=== PATIENT | female | born 1990 | race American Indian/Alaskan Native ===

== ENCOUNTER 2017-03-27 10:52 | Emergency (ER) | payer BC, OTHER ==
[2017-03-27 11:19] VITALS: BP 106/62; PULSE 80; RESP 18; TEMP 98.1; O2SAT 100; BMI 37.2
--- NOTE | 2017-03-27 11:30 | ED PDOC ---
Arrival/HPI - General Time Seen by Provider: 03/27/17 11:28 Historian: Patient - History of Present Illness Narrative History of Present Illness (Text): 03/27/17 11:29 This 26 yo female who denies pmh presents to this ED c/o right sided cp x 2 weeks. Patient stated cp is worsen with movement. 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 Patient denies recent travel, sick contact, blood disorder , hemoptysis, abdominal pain, calf pain, leg swelling, sob, skin rash, recent travel, recent surgery, recent trauma, dizziness, or abnormal gait. PERC negative for PE Time/Duration: Other (2 weeks) Quality: Aching Context: Home Past Medical History - Provider Review Nursing Documentation Reviewed: Yes Family/Social History - Physician Review Nursing Documentation Reviewed: Yes Family/Social History: Other (noncontributory) Allergies/Home Meds Allergies/Adverse Reactions: Allergies No Known Allergies Allergy (Verified 03/27/17 11:36) Review of Systems - Review of Systems Constitutional: Normal. absent: Fatigue, Weight Change, Fevers Eyes: Normal ENT: Normal Respiratory: Normal. absent: SOB, Cough, Sputum, Wheezing Cardiovascular: Chest Pain Gastrointestinal: Normal. absent: Abdominal Pain, Nausea, Vomiting Genitourinary Female: Normal Musculoskeletal: Normal Skin: Normal. absent: Rash Neurological: Normal. absent: Dizziness, Focal Weakness, Speech Changes, Disequilibrium Endocrine: Normal Hemo/Lymphatic: Normal Psychiatric: Normal Physical Exam Vital Signs Temp Pulse Resp BP Pulse Ox 03/27/17 11:15 98.1 F 80 18 106/62 100 Temperature: Afebrile Blood Pressure: Normal Pulse: Regular Respiratory Rate: Normal Appearance: Positive for: Well-Appearing, Non-Toxic, Comfortable Pain Distress: None Mental Status: Positive for: Alert and Oriented X 3 - Systems Exam Head: Present: Atraumatic, Normocephalic Pupils: Present: PERRL Extroacular Muscles: Present: EOMI Conjunctiva: Present: Normal Mouth: Present: Moist Mucous Membranes Neck: Present: Normal Range of Motion Respiratory/Chest: Present: Clear to Auscultation, Good Air Exchange, Tender to Palpation (Mild tenderness on right costochondral area. no skin rash or lesion. 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 No: Respiratory Distress, Accessory Muscle Use Cardiovascular: Present: Regular Rate and Rhythm, Normal S1, S2. No: Murmurs Abdomen: Present: Normal Bowel Sounds. No: Tenderness, Distention, Peritoneal Signs, Rebound, Guarding Back: Present: Normal Inspection. No: CVA Tenderness Upper Extremity: Present: Normal Inspection. No: Cyanosis, Edema Lower Extremity: Present: Normal Inspection. No: Edema Neurological: Present: GCS=15, CN II-XII Intact, Speech Normal Skin: Present: Warm, Dry, Normal Color. No: Rashes Psychiatric: Present: Alert, Oriented x 3, Normal Insight, Normal Concentration Medical Decision Making - RAD Interpretation Narrative RAD Interpretations (Text): 03/27/17 12:06 Chest x-rays: NAD Radiology Orders: 03/27/17 11:36 CHEST PORTABLE [RAD] Stat - EKG Interpretation Interpreted by ED Physician: Yes (NSR @ [address] changes) Type: 12 lead EKG Comparison: No previous EKG avail. - Medication Orders Current Medication Orders: Discontinued Medications Ketorolac Tromethamine (Toradol) 30 mg IM STAT STA Stop: 03/27/17 11:38 Last Admin: 03/27/17 11:57 Dose: 30 mg MAR Pain Assessment Document 03/27/17 11:57 UT (Rec: 03/27/17 11:57 UT [id number]) Pain Reassessment Is this a pain reassessment? No Sleep Is patient sleeping during reassessment? No Presence of Pain Presence of Pain Yes Pain Scale Used Pain Scale Used Numeric Location Pain Location Body Site Chest Description Description Intermittent IM Administration Charges Document 03/27/17 11:57 HI (Rec: 03/27/17 11:57 [id number] Injection Site MAR Injection Site Left Gluteus Yong Charges for Administration # of IM Administrations 1 Disposition/Present on Arrival - Present on Arrival Any Indicators Present on Arrival: No History of DVT/PE: No History of Uncontrolled Diabetes: No Urinary Catheter: No History of Decub. Ulcer: No - Disposition Have Diagnosis and Disposition been Completed?: Yes Diagnosis: Non-cardiac chest pain, Acute costochondritis Disposition: HOME/ ROUTINE Disposition Time: 12:07 Patient Plan: Discharge Condition: GOOD Discharge Instructions (ExitCare): Costochondritis (ED) Additional Instructions: Call private doctor for follow up visit in 1-2 days. Take medication as instructed with food. 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 Return to emergency if symptoms worsen. Prescriptions: Famotidine [Pepcid] 40 mg PO DAILY #10 tablet Naproxen 500 mg PO BID PRN #14 tab PRN Reason: Pain, Severe (8-10) Forms: WORK NOTE
--- NOTE | 2017-03-27 12:03 | RAD ---
HISTORY: right sided CP COMPARISON: None available. TECHNIQUE: Chest, one view. FINDINGS: Examination limited by habitus LUNGS: No focal consolidation. Please note that chest x-ray has limited sensitivity for the detection of pulmonary masses. PLEURA: No significant pleural effusion identified. No definite pneumothorax . CARDIOVASCULAR: Heart size appears within normal limits. OSSEOUS STRUCTURES: No acute osseous abnormality identified. VISUALIZED UPPER ABDOMEN: Unremarkable. OTHER FINDINGS: None. IMPRESSION: No focal consolidation, significant pleural effusion, or definite pneumothorax identified.
--- NOTE | 2017-03-27 17:56 | CARD ---
APPROVED REPORT EKG Measurement Heart [id number] PA [id number] <Conclusion> Normal sinus rhythm Normal ECG
== END 2017-03-27 12:41 | disposition home or self-care (01) ==
LOC: ED 10:52
DX: R07.89 Other chest pain (principal)
CPT/HCPCS: 71045; 93005; 96372; 99283; J1885

== ENCOUNTER 2017-08-05 11:28 | Emergency (ER) | payer OTHER ==
[2017-08-05 11:29] VITALS: BMI 37.2
[2017-08-05 11:39] VITALS: TEMP 98.9
[2017-08-05 11:46] VITALS: RESP 18; O2SAT 98
--- NOTE | 2017-08-05 11:56 | ED PDOC ---
Arrival/HPI - General Chief Complaint: Lower Extremity Problem/Injury Time Seen by Provider: 08/05/17 11:40 Historian: Patient - History of Present Illness Narrative History of Present Illness (Text): 08/05/17 11:49 A 27 year old female, with no significant past medical history, presents to the emergency department complaining of pain to left knee, left wrist, and right shoulder for 1 week. Patient reports not having seen doctor, nor has she taken any medications. Patient denies any fall or trauma. Denies any recent travel. PMD: Dr. Nichole Steve Past Medical History - Provider Review Nursing Documentation Reviewed: Yes - Psychiatric Hx Psychophysiologic Disorder: No Hx Substance Use: No Family/Social History - Physician Review Nursing Documentation Reviewed: Yes Family/Social History: No Known Family HX Smoking Status: Never Smoked Hx Alcohol Use: No Hx Substance Use: No Allergies/Home Meds Allergies/Adverse Reactions: Allergies No Known Allergies Allergy (Verified 08/05/17 11:33) Review of Systems - Physician Review All systems were reviewed & negative as marked: Yes - Review of Systems Constitutional: absent: Other (no fall/trauma) Musculoskeletal: Other (pain to left knee, left wrist, and right shoulder) Physical Exam Vital Signs Reviewed: Yes Vital Signs Temp Pulse Resp BP Pulse Ox 08/05/17 13:34 98.9 F 65 18 121/70 98 08/05/17 13:00 65 18 121/70 98 08/05/17 11:43 98.9 F 67 18 124/76 98 08/05/17 11:35 98.9 F 67 16 124/76 96 Temperature: Afebrile Blood Pressure: Normal Pulse: Regular Respiratory Rate: Normal Appearance: Positive for: Well-Appearing Pain Distress: None Mental Status: Positive for: Alert and Oriented X 3 - Systems Exam Head: Present: Atraumatic, Normocephalic Pupils: Present: PERRL Extroacular Muscles: Present: EOMI Conjunctiva: Present: Normal Mouth: Present: Moist Mucous Membranes Neck: Present: Normal Range of Motion Respiratory/Chest: Present: Clear to Auscultation, Good Air Exchange. No: Respiratory Distress, Accessory Muscle Use Cardiovascular: Present: Regular Rate and Rhythm, Normal S1, S2. No: Murmurs Abdomen: No: Tenderness, Distention, Peritoneal Signs Back: Present: Normal Inspection Upper Extremity: Present: Tenderness (mild tenderness to right shoulder and left wrist). No: Cyanosis, Edema Lower Extremity: Present: Tenderness (mild tenderness to left knee). No: Edema Neurological: Present: GCS=15, CN II-XII Intact, Speech Normal Skin: Present: Warm, Dry, Normal Color. No: Rashes Psychiatric: Present: Alert, Oriented x 3, Normal Insight, Normal Concentration Medical Decision Making ED Course and Treatment: 08/05/17 11:49 Impression: 27 year old female with pain to left wrist, left knee, and right shoulder. Physical exam shows tenderness to areas noted for pain. Plan: -- Tylenol -- POC Urine Test -- Left Knee X-Ray -- Left Wrist X-Ray -- Right Shoulder X-Ray -- Reassess and disposition Progress Notes: 08/05/2017 13:01 Right Shoulder X-Ray IMPRESSION: Acute fracture or dislocation. Dictator: Brooke Hurt MD 08/05/2017 13:02 Left Knee X-Ray IMPRESSION: No acute fracture or dislocation. Small suprapatellar joint effusion. Dictator: Brooke Hurt MD 08/05/2017 13:02 Left Wrist X-Ray IMPRESSION: No acute fracture or dislocation. Dictator: Brooke Hurt MD 08/05/17 20:11 xr neg. pt advised outpt fu for eval for rheumatolgic lyme outpt. agrees to see pmd - RAD Interpretation Radiology Orders: 08/05/17 11:48 KNEE LEFT 2 VIEWS (AP & LAT) [RAD] Stat SHOULDER RIGHT [RAD] Stat WRIST, LEFT 3 VIEWS [RAD] Stat - Medication Orders Current Medication Orders: Discontinued Medications Acetaminophen (Tylenol 325mg Tab) 975 mg PO STAT STA Stop: 08/05/17 11:50 Last Admin: 08/05/17 12:06 Dose: 975 mg - Scribe Statement The provider has reviewed the documentation as recorded by the Graham Muñoz Provider Scribe Attestation: All medical record entries made by the Scribe were at my direction and personally dictated by me. I have reviewed the chart and agree that the record accurately reflects my personal performance of the history, physical exam, medical decision making, and the department course for this patient. I have also personally directed, reviewed, and agree with the discharge instructions and disposition. Disposition/Present on Arrival - Present on Arrival Any Indicators Present on Arrival: No History of DVT/PE: No History of Uncontrolled Diabetes: No Urinary Catheter: No History of Decub. Ulcer: No History Surgical Site Infection Following: None - Disposition Have Diagnosis and Disposition been Completed?: Yes Diagnosis: Joint pain Disposition: HOME/ ROUTINE Disposition Time: 01:00 Condition: STABLE Discharge Instructions (ExitCare): Shoulder Sprain, Wrist Sprain (DC), Knee Sprain (DC), Joint Pain Additional Instructions: follow up with your doctor/specialist. you will need further workup as an outpatient, including a buildings and grounds superintendent eval, and evaluation for lyme disease. you should follow up with your doctor. it is critical that you have these tests performed Prescriptions: Naproxen 500 mg PO BID PRN #14 tablet.dr CHRISTOPHER Reason: Pain, Mild (1-3) Referrals: Nichole Steve MD [Primary Care Provider] - Follow up with primary Forms: [employer] (Angolan)
[2017-08-05 13:01] VITALS: BP 121/70; PULSE 65
--- NOTE | 2017-08-05 13:03 | RAD ---
PROCEDURE: Left Wrist Radiographs. HISTORY: Pain COMPARISON: None. FINDINGS: BONES: Bone alignment and mineralization are normal. There is no acute displaced fracture or bone destruction. JOINTS: Normal. No dislocation. The proximal and distal carpal rows are maintained. SOFT TISSUES: Normal. OTHER FINDINGS: None. IMPRESSION: No acute fracture or dislocation.
--- NOTE | 2017-08-05 13:03 | RAD ---
PROCEDURE: Radiographs of the Right Shoulder HISTORY: Pain COMPARISON: No prior. FINDINGS: BONES: Bone alignment and mineralization are normal. There is no acute displaced fracture or bone destruction. JOINTS: Normal. Glenohumeral and acromioclavicular joints preserved. SOFT TISSUES: Normal. OTHER FINDINGS: None. IMPRESSION: Acute fracture or dislocation.
--- NOTE | 2017-08-05 13:04 | RAD ---
PROCEDURE: Left Knee Radiographs. HISTORY: Pain. COMPARISON: None. FINDINGS: BONES: Bone alignment and mineralization are normal. There is no acute displaced fracture or bone destruction. JOINTS: Normal. JOINT EFFUSION: There is a small suprapatellar joint effusion. OTHER FINDINGS: None. IMPRESSION: No acute fracture or dislocation. Small suprapatellar joint effusion
== END 2017-08-05 13:34 | disposition home or self-care (01) ==
LOC: ED 11:28
DX: M25.562 Pain in left knee (principal); M25.532 Pain in left wrist; M25.511 Pain in right shoulder

== ENCOUNTER 2018-04-08 18:17 | Emergency (ER) | payer BC, OTHER ==
[2018-04-08 18:17] VITALS: BMI 37.2
[2018-04-08 18:37] VITALS: RESP 18
[2018-04-08] MEDS ORDERED: Sodium Chloride 0.9% 1,000 ML IV STA (19:30)
[2018-04-08 20:27] LABS: BASO # 0.03 K/mm3 (0.0-2.0); BASO % 0.4 % (0.0-3.0); EOS # 0.1 (0.0-0.7); EOS % 1.4 % (1.5-5.0); HEMOGLOBIN 12.6 g/dL (12.0-16.0); LYMPH # 3.1 (1.2-3.4); LYMPH % 36.2 % (22.0-35.0); MEAN CORPUSCULAR HEMOGLOBIN 28.3 pg (25.0-35.0); MEAN CORPUSCULAR HGB CONC 35.3 g/dl (31.0-37.0); MEAN PLATELET VOLUME 9.7 fl (7.0-11.0); MONO # 0.6 (0.1-0.6); MONO % 6.6 % (1.0-6.0); PH,URINE 6.5 (4.7-8.0); RBC 4.46 10^6/uL (3.5-6.1); RED CELL DISTRIBUTION WIDTH 13.4 % (11.5-14.5); URINE BILIRUBIN NEGATIVE (NEGATIVE); URINE BLOOD NEGATIVE (NEGATIVE); URINE GLUCOSE (UA) NEGATIVE (NEGATIVE); URINE LEUKOCYTE ESTERASE NEGATIVE Leu/uL (NEGATIVE); URINE PROTEIN NEGATIVE mg/dL (<30 mg/dL); URINE UROBILINOGEN 0.2 E.U./dL (<1 E.U./dL); WHITE BLOOD COUNT 8.5 10^3/uL (4.5-11.0)
[2018-04-08 20:28] LABS: URINE APPEARANCE CLEAR (CLEAR); URINE COLOR YELLOW (YELLOW)
--- NOTE | 2018-04-08 20:28 | ED PDOC ---
Arrival/HPI <Kris Hernández - Last Filed: 04/08/18 23:53> - General Historian: Patient - History of Present Illness Narrative History of Present Illness (Text): 04/08/18 20:22 27-year-old female presents today with body aches headache and vaginal spotting. Patient states she's been having intermittent body aches and headaches and also has been having intermittent vaginal spotting for the past month. pt states bleeding is minimal. Patient denies fevers or chills. Patient denies abdominal pain. No nausea vomiting diarrhea or constipation. No medications have been taken at home for headache today. Patient states the headache is frontal and pressure like. She denies nasal congestion or sore throat. No URI symptoms. She denies dizziness or weakness. No other complaints. <Lara Mcadams - Last Filed: 04/08/18 23:57> - General Chief Complaint: Headache Time Seen by Provider: 04/08/18 18:48 Past Medical History - Provider Review Nursing Documentation Reviewed: Yes - Travel History Have you recently traveled outside [place] w/in the past 3 mons?: No - Infectious Disease Hx of Infectious Diseases: None - Reproductive Menopause: No Currently : No - Psychiatric Hx Psychophysiologic Disorder: No Hx Substance Use: No - Anesthesia Hx Anesthesia: No <Lara Mcadams - Last Filed: 04/08/18 23:57> Family/Social History - Physician Review Nursing Documentation Reviewed: Yes Family/Social History: Unknown Family HX Smoking Status: Never Smoked Hx Alcohol Use: No Hx Substance Use: No <Lara Mcadams - Last Filed: 04/08/18 23:57> Allergies/Home Meds <Kris Hernández - Last Filed: 04/08/18 23:53> <Lara Mcadams - Last Filed: 04/08/18 23:57> Allergies/Adverse Reactions: Allergies shellfish derived Allergy (Verified 04/08/18 18:38) RASH fresh fruit Allergy (Uncoded 04/08/18 18:38) SWELLING nuts Allergy (Uncoded 04/08/18 18:38) CONGESTION Review of Systems - Review of Systems Constitutional: absent: Fatigue, Fevers Eyes: absent: Vision Changes, Eye Pain ENT: absent: Sore Throat, Sinus Congestion Respiratory: absent: SOB, Cough Cardiovascular: absent: Chest Pain, Palpitations Gastrointestinal: absent: Abdominal Pain, Nausea, Vomiting Genitourinary Female: Vaginal Bleeding. absent: Dysuria, Frequency, Hematuria Musculoskeletal: absent: Arthralgias, Back Pain, Neck Pain Skin: absent: Rash, Pruritis Neurological: absent: Headache, Dizziness Psychiatric: absent: Anxiety, Depression, Suicidal Ideation <Lara Mcadams - Last Filed: 04/08/18 23:57> Physical Exam Vital Signs Temp Pulse Resp BP Pulse Ox 04/08/18 23:16 98.0 F 72 18 100/55 L 99 04/08/18 22:40 71 18 118/74 98 04/08/18 18:32 97.8 F 76 18 122/79 99 <Kris Hernández - Last Filed: 04/08/18 23:53> Vital Signs Reviewed: Yes Vital Signs Temp Pulse Resp BP Pulse Ox 04/08/18 18:32 97.8 F 76 18 122/79 99 Temperature: Afebrile Blood Pressure: Normal Pulse: Regular Respiratory Rate: Normal Appearance: Positive for: Well-Appearing, Non-Toxic, Comfortable Pain Distress: None Mental Status: Positive for: Alert and Oriented X 3 - Systems Exam Head: Present: Atraumatic Pupils: Present: PERRL Extroacular Muscles: Present: EOMI Conjunctiva: Present: Normal Ears: Present: Normal, NORMAL TM Mouth: Present: Moist Mucous Membranes Pharnyx: Present: Normal Neck: Present: Normal Range of Motion, Trachea Midline. No: MIDLINE TENDERNESS, Paraspinal Tenderness Respiratory/Chest: Present: Clear to Auscultation, Good Air Exchange. No: Respiratory Distress, Accessory Muscle Use Cardiovascular: Present: Regular Rate and Rhythm, Normal S1, S2. No: Murmurs Abdomen: No: Tenderness, Distention, Rebound, Guarding Genitourinary/Pelvic Exam: No: Cervical os Closed Back: Present: Normal Inspection. No: Paraspinal Tenderness Upper Extremity: Present: Normal ROM Lower Extremity: Present: Normal ROM Neurological: Present: GCS=15, Speech Normal Skin: Present: Warm, Dry, Normal Color. No: Rashes Psychiatric: Present: Alert, Oriented x 3 <Lara Mcadams - Last Filed: 04/08/18 23:57> Medical Decision Making - Lab Interpretations Lab Results: Total Bilirubin 0.5 mg/dL (0.2-1.3) 04/08/18 20:21 AST 17 U/L (14-36) 04/08/18 20:21 ALT < 6 U/L (7-56) L 04/08/18 20:21 Alkaline Phosphatase 62 U/L (38-126) 04/08/18 20:21 Total Protein 7.7 g/dL (5.8-8.3) 04/08/18 20:21 Albumin 4.1 g/dL (3.0-4.8) 04/08/18 20:21 Globulin 3.6 gm/dL 04/08/18 20:21 Albumin/Globulin Ratio 1.1 (1.1-1.8) 04/08/18 20:21 Urine Color Yellow (YELLOW) 04/08/18 20:21 Urine Appearance Clear (CLEAR) 04/08/18 20:21 Urine pH 6.5 (4.7-8.0) 04/08/18 20:21 Ur Specific [place] 1.025 (1.005-1.035) 04/08/18 20:21 Urine Protein Negative mg/dL (<30 mg/dL) 04/08/18 20:21 Urine Glucose (UA) Negative mg/dL (NEGATIVE) 04/08/18 20:21 Urine Ketones Negative mg/dL (NEGATIVE) 04/08/18 20:21 Urine Blood Negative (NEGATIVE) 04/08/18 20:21 Urine Nitrate Negative (NEGATIVE) 04/08/18 20:21 Urine Bilirubin Negative (NEGATIVE) 04/08/18 20:21 Urine Urobilinogen 0.2 E.U./dL (<1 E.U./dL) 04/08/18 20:21 Ur Leukocyte Esterase Negative Magda/uL (NEGATIVE) 04/08/18 20:21 Beta HCG, Quant < 2.39 mIU/mL (0-6.15) 04/08/18 20:21 - RAD Interpretation Radiology Orders: 04/08/18 21:23 TRANSVAGINAL [US] Stat - Medication Orders Current Medication Orders: Discontinued Medications Acetaminophen (Tylenol 325mg Tab) 975 mg PO STAT STA Stop: 04/08/18 19:31 Last Admin: 04/08/18 19:56 Dose: 975 mg MAR Pain/Vitals Document 04/08/18 19:56 OCS (Rec: 04/08/18 19:57 OCS [facility] [id number]) Pain Reassessment Is This A Pain ReAssessment? No Sleep Is patient sleeping during reassessment? No Presence of Pain Presence of Pain Yes Pain Scale Used Protocol: [facility] Pain Scale Used Numeric Location Pain Location Body Content Editor, Neck & Back Intensity 10 Scale Used Numeric Pain Behavior Facial Grimacing Aggravating Factors ADL's Sodium Chloride (Sodium Chloride 0.9%) 1,000 mls @ 999 mls/hr IV .Q1H1M STA Stop: 04/08/18 20:30 Last Admin: 04/08/18 19:57 Dose: 999 mls/hr eMAR Start Stop Document 04/08/18 19:57 OCS (Rec: 04/08/18 19:57 OCS [facility] [id number]) Intravenous Solution Start Date 04/08/18 Start Time 19:57 End Date 04/08/18 End time 20:58 Total Infusion Time 61 Ketorolac Tromethamine (Toradol) 30 mg IVP STAT STA Stop: 04/08/18 21:19 Last Admin: 04/08/18 21:46 Dose: 30 mg MAR Pain Assessment Document 04/08/18 21:46 OCS (Rec: 04/08/18 21:48 OCS [facility] [id number]) Pain Reassessment Is this a pain reassessment? Yes Sleep Is patient sleeping during reassessment? No Presence of Pain Presence of Pain Yes Pain Scale Used Protocol: [facility] Pain Scale Used Numeric Location Pain Location Body Site Generalized Description Description Constant Intensity of Pain at present 8 Pain Behavior Irritability Aggravating Factors ADL's IVP Administration Document 04/08/18 21:46 OCS (Rec: 04/08/18 21:48 [facility] [id number] Charges for Administration # of IVP Administrations 1 <Kris Hernández - Last Filed: 04/08/18 23:53> ED Course and Treatment: 04/08/18 23:26 27-year-old female presenting with headache and body aches also with occasional vaginal spotting without abdominal pain or nausea or vomiting. Patient given Tylenol for pain. normal saline IV bolus CBCwithin normal limits CMPwithin normal limits Beta hCG within normal limits UA; wnl Patient reassessment: Patient states headache has greatly improved. Will add Toradol after negative hCG. Transvaginal ultrasoundFindings Uterus Measures 8.0 x 3.7 x 6.2 cm. Normal in size and appearance. No fibroid or other mass lesion seen. Endometrium Measures 1.2 mm in diameter. Unremarkable. Cervix No cervical abnormality identified. Right ovary Measures 2.8 x 2.0 x 3.1 cm. No solid mass. Normal flow. Left ovary Measures 4.9 x 4.0 x 4.0 cm. No solid mass. Normal flow. Cysts measuring 1.7 x 1.3 x 1.5 cm and 1.4 x 1.6 x 1.7 cm. Free fluid No significant free fluid noted. Other Findings None. Impression Left ovary cysts. Otherwise, unremarkable study. patient reassessment: Patient is nontoxic well-appearing in no distress with stable vital signs. afebrile. talking on cellphone. I discussed all results in depth with the patient. Advised follow-up with primary care physician and home therapy teacher within the next 2 days. I've advised immediate return if symptoms worsen persist or if new concerning symptoms develop. advised patient of ovarian cyst on US. Patient verbalizes understanding of discharge instructions and need for immediate followup. all aspects of this case were discussed the attending of record. Impression: Headache, vaginal bleeding Motrin every 6 hours as needed for pain Increase fluids Follow-up with the primary care physician within the next 2 days Follow-up with the home therapy teacher within the next 2 days Return immediately if symptoms worsen persist or if new concerning symptoms develop 04/08/18 23:32 Reassessment Condition: Re-examined, Improved - Medication Orders Current Medication Orders: Sodium Chloride (Sodium Chloride 0.9%) 1,000 mls @ 999 mls/hr IV .Q1H1M STA Stop: 04/08/18 20:30 Last Admin: 04/08/18 19:57 Dose: 999 mls/hr eMAR Start Stop Document 04/08/18 19:57 OCS (Rec: 04/08/18 19:57 OCS [facility] [id number]) Intravenous Solution Start Date 04/08/18 Start Time 19:57 End Date 04/08/18 End time 20:58 Total Infusion Time 61 Discontinued Medications Acetaminophen (Tylenol 325mg Tab) 975 mg PO STAT STA Stop: 04/08/18 19:31 Last Admin: 04/08/18 19:56 Dose: 975 mg MAR Pain/Vitals Document 04/08/18 19:56 OCS (Rec: 04/08/18 19:57 OCS [facility] [id number]) Pain Reassessment Is This A Pain ReAssessment? No Sleep Is patient sleeping during reassessment? No Presence of Pain Presence of Pain Yes Pain Scale Used Protocol: PSCALES Pain Scale Used Numeric Location Pain Location Body Content Editor, Neck & Back Intensity 10 Scale Used Numeric Pain Behavior Facial Grimacing Aggravating Factors ADL's <Lara Mcadams - Last Filed: 04/08/18 23:57> - PA / COOKER OPERATOR / Resident Statement / has reviewed & agrees with the documentation as recorded. <Kris Hernández - Last Filed: 04/08/18 23:53> Disposition/Present on Arrival <Kris Hernández - Last Filed: 04/08/18 23:53> - Present on Arrival Any Indicators Present on Arrival: No History of DVT/PE: No History of Uncontrolled Diabetes: No Urinary Catheter: No History of Decub. Ulcer: No History Surgical Site Infection Following: None - Disposition Have Diagnosis and Disposition been Completed?: Yes Disposition Time: 21:25 Patient Plan: Discharge <Lara Mcadams - Last Filed: 04/08/18 23:57> - Disposition Diagnosis: Headache, Vaginal bleeding, Ovarian cyst Disposition: HOME/ ROUTINE Patient Problems: Current Active Problems Problem Status Onset Headache Acute Ovarian cyst Acute Vaginal bleeding Acute Condition: GOOD Discharge Instructions (ExitCare): Headache, Adult, Ovarian Cyst (DC) Additional Instructions: Motrin every 6 hours as needed for pain Increase fluids Follow-up with the primary care physician within the next 2 days Follow-up with the home therapy teacher within the next 2 days Return immediately if symptoms worsen persist or if new concerning symptoms develop Prescriptions: Ibuprofen [Motrin] 600 mg PO Q6H PRN #20 tab PRN Reason: pain/fever reduction Referrals: Nichole Steve MD [Primary Care Provider] - Follow up with primary Lupe Pagan MD [Staff Provider] - [facility] [[facility]] - Follow up with primary Raina Klein MD [Medical Doctor] - Follow up with primary [facility] [employer] [facility] [Outside] - Follow up with primary Forms: [employer] ([place]), WORK NOTE
[2018-04-08 20:36] LABS: ALB/GLOB RATIO 1.1 (1.1-1.8); ALBUMIN 4.1 g/dL (3.0-4.8); AST/SGOT 17 U/L (14-36); BLOOD UREA NITROGEN 7 mg/dL (7-21); CALCIUM 9.9 mg/dL (8.4-10.5); GFR NON-AFRICAN AMERICAN > 60
[2018-04-08 20:52] LABS: ALT/SGPT < 6 U/L (7-56)
[2018-04-08 23:18] VITALS: PULSE 72; TEMP 98; O2SAT 99
[2018-04-08 23:55] VITALS: BP 121/75
--- NOTE | 2018-04-09 09:32 | US ---
Date of service: 04/08/2018 HISTORY: Vaginal bleeding COMPARISON: None available. TECHNIQUE: Transvaginal pelvic ultrasound was performed. FINDINGS: UTERUS: Measures 8.0 x 3.7 x 6.2 cm. Anteverted, normal in size and appearance. No fibroid or other mass lesion seen. ENDOMETRIUM: Measures 12 mm in diameter. Normal in appearance. CERVIX: No cervical abnormality identified. RIGHT OVARY: Measures 2.8 x 2.0 x 3.1 cm. No solid mass. Normal flow. LEFT OVARY: Measures 4.9 x 4.0 x 4.0 cm. No solid mass. Normal flow. There are 1.7 x 1.3 x 1.5 cm and 1.4 x 1.6 x 1.7 cm simple cyst. FREE FLUID: No significant free fluid noted. OTHER FINDINGS: None. IMPRESSION: Two simple ovarian cysts, measuring about 1.7 cm. Otherwise unremarkable pelvic ultrasound. A preliminary report was provided by [employer].
== END 2018-04-09 00:23 | disposition home or self-care (01) ==
LOC: ED 18:17
DX: N93.9 Abnormal uterine and vaginal bleeding, unspecified (principal); R51 Headache; N83.202 Unspecified ovarian cyst, left side
CPT/HCPCS: 76830; 80053; 81003; 81025; 84702; 85025; 96361; 96374; 99285; J1885; J7030